=== PATIENT | female | born 2000 ===

== ENCOUNTER 2021-09-13 14:51 | Emergency (ER) | payer OTHER ==
[~2021-09-13] VITALS: Ht 162.6 cm; Wt 86.4 kg
[2021-09-13 15:40] VITALS: BP 127/68
[2021-09-13] MEDS ORDERED: CYCL-397 PO (15:49)
== END 2021-09-13 16:09 | disposition home or self-care (01) ==
LOC: EMS 14:51
DX: M25.512 Pain in left shoulder (principal); M25.511 Pain in right shoulder; M54.6 Pain in thoracic spine; V49.40XA Driver injured in collision with unspecified motor vehicles in traffic accident, initial encounter; Y93.89 Activity, other specified; Y92.89 Other specified places as the place of occurrence of the external cause; Y99.8 Other external cause status
CPT/HCPCS: 99282; 99283